=== PATIENT | female | born 1955 | race Caucasian/White ===

== ENCOUNTER → 2017-12-06 | Day surgery (SDC) | payer OTHER ==
[2017-12-03 13:46] VITALS: BMI 27.2
[~2017-12-06] MED LIST: Clindamycin/D5W 900 mg/50 ml Premix Bag ONE; Ketamine 50 MG/ML VIAL ONE; Levofloxacin 500 mg/D5W 100 ml Premix Bag ONE; Lidocaine 1% (PF) 30 ML VIAL ONE; Midazolam HCl 5 mg/5 ml Vial ONE; PROPOFOL 200 MG/20 ML VIAL ONE; traMADol HCl 50 MG TAB ONE
[2017-12-06 11:30] LABS: #Basophils 0.1 thou/uL (0.0-0.2); #Eosinphils 0.3 thou/uL (0.0-0.7); #Lymphocytes 2.9 thou/uL (1.20-3.40); #Monocytes 0.7 thou/uL (0.11-0.59); %Eosinophils 2.8 % (0.0-10.0); %Lymphocytes 29.4 % (21.0-51.0); %Monocytes 6.5 % (0.0-10.0); %Neutrophils 60.3 % (42.0-75.0); Hemoglobin 14.9 g/dL (12.0-16.0); Mean Corpuscular HGB CONC 32.4 g/dL (32.0-36.0); Mean Corpuscular Hemoglobin 30.6 pg (27.0-31.0); Mean Corpuscular Volume 94.6 fl (81.0-99.0); Mean Platelet Volume 6.9 fL (7.4-10.4); Platelet Count 239 thou/uL (130-400); RBC Distribution Width 13.1 % (11.5-14.5); Red Blood Cell (RBC) Count 4.85 mill/uL (4.20-5.40); White Blood Cell (WBC) Count 9.9 thou/uL (4.8-10.8)
[2017-12-06 11:38] LABS: Prothrombin Time 13.1 SEC (12.0-14.7)
[2017-12-06 11:42] LABS: Anion Gap 14 mmol/L (10-20); BUN (Urea Nitrogen) 11 mg/dL (9.8-20.1); Calc. Creatinine Clearance 66 mL/min (70-130); Calcium 10.3 mg/dL (7.8-10.44); Carbon Dioxide 24 mmol/L (23-31); Chloride 105 mmol/L (98-107); Estimated GFR-MDRD 59; Glucose 113 mg/dL (80-115); Potassium 4.2 mmol/L (3.5-5.1); Sodium 139 mmol/L (136-145)
[2017-12-06 11:44] LABS: PTT 22.2 SEC (22.9-36.1)
--- NOTE | 2017-12-06 15:36 | RAD ---
CHEST ONE VIEW: HISTORY: Post cardiac device placement. COMPARISON: Chest, one view, 01/21/2017. FINDINGS: Interval placement of a dual-lead pacer/AICD, without complication. There is increased opacity within the left lower lobe and lingula with linear lung markings. IMPRESSION: 1. Uncomplicated placement of dual-lead automatic implantable cardioverter-defibrillator/pacer. 2. Improved air space opacity since the 01/21/2017 examination. 3. Lingular and left lower lobe solid appearing density. 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 POS: [facility]
--- NOTE | 2017-12-06 21:34 | EKG ---
Test Reason : PREOP Blood Pressure : / mmHG Vent. Rate : 063 BPM Atrial Rate : 062 BPM P-R Int : 000 ms QRS Dur : 116 ms QT Int : 406 ms P-R-T Axes : 000 -74 265 degrees QTc Int : 415 ms Electronic atrial pacemaker Left anterior fascicular block Left ventricular hypertrophy with QRS widening Lateral infarct (cited on or before 31-DEC-2016) Marked ST abnormality, possible inferior subendocardial injury * ACUTE PR * Abnormal ECG When compared with ECG of 21-JAN-2017 07:48, Significant changes have occurred Confirmed by Sarahi HART ([id number]) on 12/06/2017 9:34:25 PM Referred By: DANO Confirmed By:Sarahi HART
== END ==
LOC: CCL 08:39
PROVIDERS: ATTEND Internal Medicine Cardiovascular Disease
PROC: 0JPT0PZ Removal of Cardiac Rhythm Related Device from Trunk Subcutaneous Tissue and Fascia, Open Approach (ICD-10-PCS; principal; 2017-12-06)
PROC: 0JH608Z Insertion of Defibrillator Generator into Chest Subcutaneous Tissue and Fascia, Open Approach (ICD-10-PCS; principal; 2017-12-06)
DX: Z45.02 Encounter for adjustment and management of automatic implantable cardiac defibrillator (principal); I11.0 Hypertensive heart disease with heart failure; I50.23 Acute on chronic systolic (congestive) heart failure; I25.5 Ischemic cardiomyopathy; I48.0 Paroxysmal atrial fibrillation; I25.10 Atherosclerotic heart disease of native coronary artery without angina pectoris; E03.9 Hypothyroidism, unspecified; F31.9 Bipolar disorder, unspecified; F19.10 Other psychoactive substance abuse, uncomplicated; Z88.0 Allergy status to penicillin; Z88.2 Allergy status to sulfonamides; Z88.8 Allergy status to other drugs, medicaments and biological substances; Z79.01 Long term (current) use of anticoagulants; Z79.82 Long term (current) use of aspirin; Z79.899 Other long term (current) drug therapy; Z98.890 Other specified postprocedural states
CPT/HCPCS: 33263; 36415; 71045; 80048; 85025; 85610; 85730; 93005; 93010; 93641; C1721; J1956; J2001; J2250; J2704; J3490

== ENCOUNTER 2018-03-09 13:02 | Outpatient (CLI) | payer OTHER ==
--- NOTE | 2018-03-11 12:19 | RAD ---
RIGHT FOREARM 2 VIEWS: HISTORY: Right arm pain. FINDINGS: Compression plates and multiple screws transfix the distal radial and ulnar shafts, in anatomic align ment. Fracture planes are not lucent. No perihardware lucency. Yeoman volar angulation of the distal radius has the appearance of an old healed fracture. Ulna positi ve variant is apparent. Osseous structures are likely demineralized. IMPRESSION: 1. Internal fixation right radius and ulna. Old healed distal radial fracture. No acute osseous ab normalities are demonstrated. 2. Osteoporosis. 3. Prominent ulna positive variant. POS: [facility]
== END 2018-03-09 13:03 | disposition home or self-care (01) ==
LOC: RAD-FRANK 13:02
PROVIDERS: ATTEND Internal Medicine
DX: S59.911A Unspecified injury of right forearm, initial encounter (principal); M81.0 Age-related osteoporosis without current pathological fracture; Z98.890 Other specified postprocedural states

== ENCOUNTER 2018-03-30 19:30 | Outpatient (CLI) | payer OTHER | END 2018-03-30 19:31 | disposition home or self-care (01) | LOC: SLEEPLAB 19:30 | PROVIDERS: ATTEND Internal Medicine | DX: G47.33 Obstructive sleep apnea (adult) (pediatric) (principal); R53.83 Other fatigue; K21.9 Gastro-esophageal reflux disease without esophagitis; I11.0 Hypertensive heart disease with heart failure; I50.9 Heart failure, unspecified; E11.9 Type 2 diabetes mellitus without complications | CPT/HCPCS: 95811 ==

== ENCOUNTER 2019-09-07 10:31 | Outpatient (CLI) | payer OTHER ==
--- NOTE | 2019-09-07 10:56 | ULT ---
Right upper quadrant ultrasound: 09/07/2019 COMPARISON: None HISTORY: Elevated liver function tests TECHNIQUE: Multiplanar grayscale sonographic imaging of the right upper quadrant obtained FINDINGS: The hepatic parenchyma is heterogeneous in the peripheral contour the liver is irregular. F indings are suspicious for cirrhosis. No focal liver lesion or intrahepatic biliary dilatation noted. The common bile duct measures approximately 7 mm, likely within normal limits given the patient's his tory of prior cholecystectomy. Clinical correlation required. Imaged pancreas unremarkable. The tail of the pancreas is obscured by bowel gas. The right kidney measures 8.7 cm in craniocaudal dimension and demonstrates no evidence for stone, hy dronephrosis, or mass. IMPRESSION: Findings suggesting cirrhosis.
== END 2019-09-07 10:32 | disposition home or self-care (01) ==
LOC: BICULT 10:31
PROVIDERS: ATTEND Internal Medicine
DX: R94.5 Abnormal results of liver function studies (principal)
CPT/HCPCS: 76705

== ENCOUNTER 2019-09-19 10:01 | Outpatient (CLI) | payer OTHER ==
--- NOTE | 2019-09-19 10:21 | RAD ---
PA AND LATERAL CHEST: Date: 09/19/2019 HISTORY: Dyspnea. COMPARISON: 12/06/2017. FINDINGS: The heart size is enlarged. The left ventricular aneurysm seen on the CT scan of 12/13/2016 and the c omparison chest x-ray are stable. Left-sided AICD remains in place. Lungs are well expanded without l obar consolidation, pneumothoraces, lesa pulmonary edema, or pleural effusions. The compressed T8 ve rtebral body is stable. A new compression of the T6 vertebral body is seen. IMPRESSION: No acute process. POS: [facility]
== END 2019-09-19 10:02 | disposition home or self-care (01) ==
LOC: RAD 10:01
PROVIDERS: ATTEND Internal Medicine
DX: R06.00 Dyspnea, unspecified (principal)
CPT/HCPCS: 71046

== ENCOUNTER 2020-03-12 14:46 | Outpatient (CLI) | payer OTHER ==
--- NOTE | 2020-03-12 15:20 | RAD ---
Left foot 3 views HISTORY: Injury. COMPARISON: 08/05/2012. FINDINGS: Lisfranc joint alignment is anatomic. Plantar arch is somewhat exaggerated. Small plantar e nthesophyte arises from the inferior aspect of the calcaneus. Mild osteoarthritic changes are present throughout the foot. A subtle transverse sclerotic line extends across the mid shaft of the proximal phalanx little toe wi th subtle associated cortical thickening/buckling. No displaced fractures are apparent. IMPRESSION : Suspected healing/old fracture at the proximal phalanx of the left Little toe. Mild osteoarthritic changes. Small plantar heel spur.
== END 2020-03-12 14:47 | disposition home or self-care (01) ==
LOC: RAD 14:46
PROVIDERS: ATTEND Nurse Practitioner Family
DX: S99.922A Unspecified injury of left foot, initial encounter (principal); M19.072 Primary osteoarthritis, left ankle and foot; M77.32 Calcaneal spur, left foot

== ENCOUNTER 2020-03-16 21:48 | Emergency (ER) | payer OTHER ==
[2020-03-16 23:26] LABS: #Basophils 0.1 thou/uL (0.0-0.2); #Eosinphils 0.3 thou/uL (0.0-0.7); #Lymphocytes 3.3 thou/uL (1.20-3.40); #Monocytes 0.7 thou/uL (0.11-0.59); #Neutrophils 4.8 thou/uL (1.40-6.50); %Basophils 1.2 % (0.0-1.0); %Eosinophils 3.3 % (0.0-10.0); %Lymphocytes 36.4 % (21.0-51.0); %Monocytes 7.3 % (0.0-10.0); %Neutrophils 51.7 % (42.0-75.0); Hemoglobin 12.9 g/dL (12.0-16.0); Mean Corpuscular HGB CONC 33.4 g/dL (32.0-36.0); Mean Corpuscular Hemoglobin 32.6 pg (27.0-31.0); Mean Corpuscular Volume 97.7 fL (78.0-98.0); Mean Platelet Volume 7.8 fL (7.4-10.4); Platelet Count 160 thou/uL (130-400); RBC Distribution Width 12.4 % (11.5-14.5); Red Blood Cell (RBC) Count 3.97 mill/uL (4.20-5.40); White Blood Cell (WBC) Count 9.2 thou/uL (4.8-10.8)
--- NOTE | 2020-03-16 23:49 | RAD ---
EXAM: CHEST ONE VIEW HISTORY: Malfunctioning defibrillator. COMPARISON: 09/19/2019 FINDINGS: Dual lead left subclavian AICD device remains in place and unchanged in position. Cardiac silhouette remains in enlarged with abnormal configuration at the left cardiac border unchanged when compared to prior study. Prior CT thorax in 2017 demonstrated marked left ventricular dilatation as well as a left ventricular aneurysm which corresponds to chest x-ray abnormality. There is mild nonspecific interstitial prominence. No consolidation or pleural fluid is identified.. Osteopenia is present. Vas cular calcifications are seen in the thoracic aorta. IMPRESSION: 1. Cardiomegaly with evidence of left ventricular aneurysm which was seen on a prior CT exam. 2. Nonspecific mild interstitial prominence.
[2020-03-16 23:50] LABS: ALT (SGPT) 42 U/L (8-55); AST (SGOT) 59 U/L (5-34); Albumin 3.8 g/dL (3.4-4.8); Alkaline Phosphatase 240 U/L (40-110); Anion Gap 12 mmol/L (10-20); BUN (Urea Nitrogen) 16 mg/dL (9.8-20.1); Bilirubin, Total 0.8 mg/dL (0.2-1.2); Calc. Creatinine Clearance 0 mL/min (70-130); Calcium 8.9 mg/dL (7.8-10.44); Carbon Dioxide 20 mmol/L (23-31); Chloride 108 mmol/L (98-107); Estimated GFR-MDRD 36; Globulin 3.6 g/dL (2.4-3.5); Glucose 79 mg/dL (80-115); Potassium 3.4 mmol/L (3.5-5.1); Protein, Total 7.4 g/dL (6.0-8.3); Sodium 137 mmol/L (136-145)
== END 2020-03-17 01:41 | disposition home or self-care (01) ==
LOC: ERS 21:48
DX: Z45.02 Encounter for adjustment and management of automatic implantable cardiac defibrillator (principal); E03.9 Hypothyroidism, unspecified; I25.2 Old myocardial infarction; I25.10 Atherosclerotic heart disease of native coronary artery without angina pectoris; E78.5 Hyperlipidemia, unspecified; I11.0 Hypertensive heart disease with heart failure; I50.9 Heart failure, unspecified; F41.9 Anxiety disorder, unspecified; F31.9 Bipolar disorder, unspecified; E11.9 Type 2 diabetes mellitus without complications; F20.9 Schizophrenia, unspecified; F17.210 Nicotine dependence, cigarettes, uncomplicated; Z79.899 Other long term (current) drug therapy; Z79.82 Long term (current) use of aspirin
CPT/HCPCS: 36415; 71045; 80053; 83735; 83880; 84484; 85025; 93005

== ENCOUNTER 2020-04-16 22:06 | Emergency (ER) | payer OTHER ==
--- NOTE | 2020-04-16 22:48 | RAD ---
LEFT WRIST 3 VIEWS: HISTORY: Left wrist pain, injury FINDINGS: There is a tiny bony density noted in the soft tissues of the dorsal aspect of the distal wrist/carpu s, suspicious for a fracture of the triquetrum.
--- NOTE | 2020-04-16 22:50 | RAD ---
XR Forearm Rt 2 View STANDARD HISTORY: Fall, right wrist pain, right forearm pain FINDINGS: There are postop changes with metallic hardware of healed fractures of the shafts of the distal radiu s and ulna. No evidence of acute process is seen.
== END 2020-04-16 23:32 | disposition home or self-care (01) ==
LOC: ERS 22:06
DX: S62.112A Displaced fracture of triquetrum [cuneiform] bone, left wrist, initial encounter for closed fracture (principal); E03.9 Hypothyroidism, unspecified; I25.10 Atherosclerotic heart disease of native coronary artery without angina pectoris; I25.2 Old myocardial infarction; E78.5 Hyperlipidemia, unspecified; F41.9 Anxiety disorder, unspecified; F17.210 Nicotine dependence, cigarettes, uncomplicated; E11.9 Type 2 diabetes mellitus without complications; F20.9 Schizophrenia, unspecified; F31.9 Bipolar disorder, unspecified; I11.0 Hypertensive heart disease with heart failure; I50.9 Heart failure, unspecified; Z79.899 Other long term (current) drug therapy; Z79.82 Long term (current) use of aspirin; Z79.01 Long term (current) use of anticoagulants; W19.XXXA Unspecified fall, initial encounter
CPT/HCPCS: 29125

== ENCOUNTER 2020-05-28 07:18 | Outpatient (CLI) | payer OTHER ==
[2020-05-28 16:23] LABS: #Basophils 0.1 thou/uL (0.0-0.2); #Eosinphils 0.1 thou/uL (0.0-0.7); #Lymphocytes 2.2 thou/uL (1.20-3.40); #Monocytes 0.5 thou/uL (0.11-0.59); #Neutrophils 4.9 thou/uL (1.40-6.50); %Basophils 0.8 % (0.0-1.0); %Eosinophils 1.1 % (0.0-10.0); %Lymphocytes 28.2 % (21.0-51.0); %Monocytes 6.5 % (0.0-10.0); %Neutrophils 63.4 % (42.0-75.0); Hemoglobin 12.4 g/dL (12.0-16.0); Mean Corpuscular Hemoglobin 31.8 pg (27.0-31.0); Mean Corpuscular Volume 99.4 fL (78.0-98.0); Mean Platelet Volume 8.9 fL (7.4-10.4); Platelet Count 134 thou/uL (130-400); RBC Distribution Width 12.2 % (11.5-14.5); Red Blood Cell (RBC) Count 3.91 mill/uL (4.20-5.40); White Blood Cell (WBC) Count 7.8 thou/uL (4.8-10.8)
[2020-05-28 16:36] LABS: Bacteria/HPF None Seen HPF (None Seen); Bilirubin Negative (Negative); Blood, Urine Negative (Negative); Clarity Clear (Clear); Glucose, Urine (Dipstick) Normal (Negative); Ketone, Urine Negative (Negative); Leukocyte Negative Leu/uL (Negative); Nitrite Negative (Negative); Protein, Urine (Dipstick) Negative (Neg-Trace); RBC/HPF 0-3 HPF (0-3); Specific Gravity, Urine 1.007 (1.002-1.036); Squamous Epithelial 0-3 HPF (0-3); Urobilinogen Normal mg/dL (Less than 2); WBC/HPF 0-3 HPF (0-3)
[2020-05-28 16:39] LABS: Anion Gap 15 mmol/L (10-20); BUN (Urea Nitrogen) 9 mg/dL (9.8-20.1); Calc. Creatinine Clearance 0 mL/min (70-130); Calcium 8.2 mg/dL (7.8-10.44); Carbon Dioxide 18 mmol/L (23-31); Chloride 108 mmol/L (98-107); Estimated GFR-MDRD 60; Glucose 101 mg/dL (80-115); Potassium 4.9 mmol/L (3.5-5.1); Sodium 136 mmol/L (136-145)
--- NOTE | 2020-05-29 11:07 | EKG ---
Test Reason : PREOP Blood Pressure : / mmHG Vent. Rate : 070 BPM Atrial Rate : 044 BPM P-R Int : 262 ms QRS Dur : 164 ms QT Int : 414 ms P-R-T Axes : 000 -87 083 degrees QTc Int : 447 ms Atrial-paced rhythm with prolonged AV conduction Left axis deviation Non-specific intra-ventricular conduction block Septal infarct , age undetermined Abnormal ECG Confirmed by ELIZA VELASQUEZ M.D. ([id number] on 05/29/2020 11:06:58 AM Referred By: AARON Confirmed By:ELIZA VELASQUEZ M.D.
[2020-05-29 12:33] LABS: SARS-CoV-2 MS2 Positive; SARS-CoV-2 N Gene Negative; SARS-CoV-2 S Gene Negative; SARS-CoV-2 by NAA Not Detected (NotDetected); SARS-CoV-2 orf1ab Negative
== END 2020-05-28 07:19 | disposition home or self-care (01) ==
LOC: LABBT 07:18
PROVIDERS: ATTEND Orthopaedic Surgery Hand Surgery
DX: Z01.818 Encounter for other preprocedural examination (principal); Z20.828 Contact with and (suspected) exposure to other viral communicable diseases; S62.132A Displaced fracture of capitate [os magnum] bone, left wrist, initial encounter for closed fracture
CPT/HCPCS: 80048; 81001; 85025; 87635; 93005; 93010; U0003

== ENCOUNTER 2020-05-31 09:04 | Day surgery (SDC) | payer OTHER ==
[2020-05-29 13:08] VITALS: BMI 26.6
[2020-05-31] MEDS ORDERED: Midazolam HCl 2 mg/2 ml Vial ONE (11:02)
[2020-05-31] MEDS ORDERED: Fentanyl 100 MCG/2 ML VIAL ONE ×2 (11:03→11:40)
[2020-05-31] MEDS ORDERED: PROPOFOL 200 MG/20 ML VIAL ONE (11:10)
[2020-05-31] MEDS ORDERED: Ondansetron PF 4 MG/2 ML Vial ONE (11:10)
[2020-05-31] MEDS ORDERED: EPHEDRINE 25 MG/5 ML SYRINGE ONE (11:10)
[2020-05-31] MEDS ORDERED: PHENYLEPHRINE-NS 100 MCG/ML 10 ML SYRINGE ONE (11:10)
[2020-05-31] MEDS ORDERED: Lidocaine 1% PF 5 ML VIAL ONE (11:10)
[2020-05-31] MEDS ORDERED: Bupivacaine HCl 0.5%/Epinephrine 1:200,000/PF 30 ml Vial ONE (11:11)
[2020-05-31] MEDS ORDERED: Sodium Chloride 0.9% 10 ML ONE (11:24)
[2020-05-31] MEDS ORDERED: Bupivacaine PF 0.5% 30 ML VIAL ONE (11:24)
[2020-05-31] MEDS ORDERED: Bacitracin Zinc Ointment 30 gm TUBE ONE (11:24)
[2020-05-31] MEDS ORDERED: Clindamycin/D5W 900 mg/50 ml Premix Bag ONE (11:28)
[2020-05-31] MEDS ORDERED: Phenylephrine 10 MG/ML VIAL ONE (11:40)
[2020-05-31] MEDS ORDERED: HYDROmorphone 2 MG/ML VIAL SLOW IVP PRN (15:14)
[2020-05-31] MEDS ORDERED: Promethazine HCl 25 MG/ML VIAL IM PRN (15:14)
[2020-05-31] MEDS ORDERED: Promethazine HCl 25 MG/ML VIAL SLOW IVP PRN (15:14)
[2020-05-31] MEDS ORDERED: Ketorolac Tromethamine 30 MG/ML VIAL ONE (15:27)
--- NOTE | 2020-05-31 17:29 | RAD ---
XR Wrist 3 Lt View STANDARD History: ORIF left wrist Comparison: Wrist radiograph May 13, 2020 Findings: Multiple fluoroscopic images were obtained. Compression screw through the scaphoid as well as to the capitate. Likely osteotomy change of the distal radius. Impression: Fluoroscopy for surgical use. Total fluoroscopy time: 1 minute 25 seconds.
--- NOTE | 2020-06-02 15:07 | OP ---
DATE OF PROCEDURE: 05/31/2020 PREOPERATIVE DIAGNOSES: 1. Left capitate fracture, minimally displaced, without nonunion. 2. Left scaphoid displaced fracture with nonunion. FINDINGS: 1. Left scaphoid atrophic nonunion. 2. Capitate fracture without nonunion. PROCEDURES PERFORMED: 1. Open reduction and internal fixation of capitate fracture. 2. Open reduction and internal fixation of scaphoid nonunion with distal radius bone graft 1 cm wide taken from the ridge of the radius giving it a bicortical effect. 3. C-arm supervision. COMPLICATIONS: None. SPECIMEN: None. TOURNIQUET TIME: 118 minutes. BLOOD LOSS: 10 mL. DESCRIPTION OF PROCEDURE: After successful general endotracheal anesthesia, the limb was prepped and draped. The patient then had the fluoroscopy performed. We saw that the capitate fracture did not move and was only approximately 10% displaced while the scaphoid fracture, junction of the mid third and the distal third, was highly mobile. For this reason, we outlined incision for bone graft of the radius, percutaneous type pericapsular fixation of the capitate, and palmar incision for open reduction and internal fixation of scaphoid. We first turned to the scaphoid, and because she had a block we did not have to use any augmenting Marcaine. We exsanguinated the limb and inflated the tourniquet to 250 mmHg pressure. We then made an incision along the flexor carpi radialis tendon until we were past the scaphoid tubercle, retracted tendon and went through the bed of the flexor carpi radialis tendon. We also opened the joint capsule, which was confluent with the bed and then partially released the radial scaphocapitate ligament. Then, we released the capsule off the scaphoid, open the scaphotrapezial joint, and visualized the fracture. The portion distant to the fracture was only approximately 8 mm and when debrided to get down to bleeding pink bone, removed approximately 2 mm in its deep inner side. On the proximal aspect, where most of the bone was located, we were able to remove enough bone to get punctate bleeding with tourniquet deflation. We then measured using K-wires as toggles the position of fragment that would be stable and eliminated any humpback deformity. We then went to the proximal radius using C-arm to outline Taina tubercle and from here proximally, made a 2.5 cm incision carried through skin and subcutaneous tissue on the radial side of the tubercle identified the ECR and ECB and protected them. We released the retinaculum on the ulnar side, released the retinaculum just distal tubercle and found the EPL, we kept it intact. Now, we used a sagittal saw on the end of a TPS 1 cm blade to harvest a 1 cm deep, bicortical, 1-cm wide bone graft. We removed a small amount of cancellous bone at this point, packed some in the interstices where we had debrided the center of the fragment, especially the comminuted distal fragment, and then shaped the bone using toggle sticks to achieve length and eliminating humpback deformity. We slowly corrected the capitolunate angle, placed the lunate almost completely out of the dorsal intercalated instability and then placed the bone graft in. We held the bone graft with two wires, one down the primary axis frontal sagittal plane, which we screw and another more capitate to this, which would be used to maintain reduction. We then measured the screw, and did approach the drill measuring and placed the screw under compression; of 2 mm, it was buried 1 mm. They did not protrude dorsally or enter the radiocarpal joint and did not protrude through the capitoscaphoid joint. We removed the wires, added a slight amount of additional bone graft, and then prepared for the closure. We closed this area with just the capsule with a running 2-0 Vicryl, and then we placed a bulky dressing here. We now approached the capitate, we returned back to the palmar side where we could harvest the distal radius graft, and then went approximately 1 cm distal. Using the C-arm, identified the edge of the dorsal lunate and the capitate. the third from the fourth dorsal compartments, we were able to find this on radiographs, make a 7 mm incision in the capsule longitudinally, spread and then find the capitate's edge. We then placed two guidewires, one to hold any reduction and one for screw and compression, measured this appropriately at 20, but we chose a 16 screw which we could bury. We drilled and then placed the 3.0 x 26 Synthes headless screw in compression mode, fracture line disappeared. The screw head was buried in the bone, did not protrude out into the carpometacarpal joint and we were able to control the bleeding once tourniquet was decreased. We closed the capsule with interrupted [id number] Prolene 4-0, closed the retinaculum with a running 2-0 Vicryl undyed, subcutaneous closure dorsally with a running 4-0 Monocryl followed by 4-0 nylon simple mattress pattern. The same closure techniques were used on the palmar side and same sutures and the patient left the operating room without evidence of anesthetic or operative complication. A bulky was applied and a long arm splint. Job ID: [id number]
== END 2020-05-31 17:10 | disposition home or self-care (01) ==
LOC: SDC 09:04
PROVIDERS: ATTEND Orthopaedic Surgery Hand Surgery
PROC: 0PSN04Z Reposition Left Carpal with Internal Fixation Device, Open Approach (ICD-10-PCS; principal; 2020-05-31)
DX: S62.012A Displaced fracture of distal pole of navicular [scaphoid] bone of left wrist, initial encounter for closed fracture (principal); S62.115A Nondisplaced fracture of triquetrum [cuneiform] bone, left wrist, initial encounter for closed fracture; G89.18 Other acute postprocedural pain; I10 Essential (primary) hypertension; I25.2 Old myocardial infarction; I48.20 Chronic atrial fibrillation, unspecified; E78.00 Pure hypercholesterolemia, unspecified; F31.9 Bipolar disorder, unspecified; F41.9 Anxiety disorder, unspecified; F17.210 Nicotine dependence, cigarettes, uncomplicated; Z79.01 Long term (current) use of anticoagulants; Z79.899 Other long term (current) drug therapy; Z88.0 Allergy status to penicillin; Z88.2 Allergy status to sulfonamides; Z88.8 Allergy status to other drugs, medicaments and biological substances
CPT/HCPCS: 76000; C1713; J0670; J0690; J1885; J2250; J2370; J2405; J2704; J3010; J3490; S0020

== ENCOUNTER 2021-09-19 09:46 | Inpatient (IN) | payer MEDICARE, MEDICAID ==
[2021-09-19 10:25] LABS: Hemoglobin 6.8 g/dL (12.0-16.0); Mean Corpuscular HGB CONC 32.5 g/dL (32.0-36.0); Mean Corpuscular Hemoglobin 33.3 pg (27.0-31.0); Red Blood Cell (RBC) Count 2.03 mill/uL (4.20-5.40)
[2021-09-19 10:34] LABS: PTT 51.6 sec (22.9-36.1); Prothrombin Time 40.9 sec (12.0-14.7)
[2021-09-19 10:39] LABS: #Basophils 0.1 thou/uL (0.0-0.2); #Eosinphils 0.2 thou/uL (0.0-0.7); #Lymphocytes 2.9 thou/uL (1.20-3.40); #Monocytes 0.9 thou/uL (0.11-0.59); #Neutrophils 6.8 thou/uL (1.40-6.50); %Basophils 1.3 % (0.0-1.0); %Eosinophils 2.2 % (0.0-10.0); %Lymphocytes 26.5 % (21.0-51.0); %Monocytes 8.6 % (0.0-10.0); %Neutrophils 61.4 % (42.0-75.0); Burr Cells SLIGHT = 2-5 cells (100X) (0-1/hpf); MDiff Complete? YES; Macrocytosis SLIGHT = 6-15 cells (100X) (0-5/hpf); Mean Platelet Volume 7.5 fL (7.4-10.4); Platelet Count 119 thou/uL (130-400); Platelet Morphology Comment Appears Decreased; Polychromasia SLIGHT = 2-3 cells (100X) (0-2/hpf); RBC Distribution Width 14.8 % (11.5-14.5)
[2021-09-19 10:48] LABS: Chloride 111 mmol/L (98-107); Sodium 137 mmol/L (136-145)
[2021-09-19 10:52] LABS: Albumin 2.6 g/dL (3.4-4.8)
[2021-09-19 10:54] LABS: Calcium 8.7 mg/dL (7.8-10.44)
[2021-09-19 10:55] LABS: Globulin 3.8 g/dL (2.4-3.5); Glucose 114 mg/dL (80-115); Protein, Total 6.4 g/dL (5.8-8.1)
[2021-09-19 10:56] LABS: Anion Gap 12 mmol/L (10-20); Carbon Dioxide 19 mmol/L (23-31)
[2021-09-19 10:57] LABS: Bilirubin, Total 3.1 mg/dL (0.2-1.2)
[2021-09-19 10:58] LABS: Alkaline Phosphatase 129 U/L (40-110); Calc. Creatinine Clearance 0 mL/min (70-130)
[2021-09-19 10:59] LABS: BUN (Urea Nitrogen) 28 mg/dL (9.8-20.1)
[2021-09-19 11:00] LABS: AST (SGOT) 62 U/L (5-34)
[2021-09-19 11:01] LABS: ALT (SGPT) 35 U/L (8-55)
[2021-09-19 11:02] LABS: INR-International Normal Ratio 4.1
[2021-09-19] MEDS ORDERED: Pantoprazole 40 MG VIAL ONE (11:47)
[2021-09-19 11:51] LABS: CK (CPK) 33 U/L (29-168); Lipase 55 U/L (8-78)
[2021-09-19] MEDS ORDERED: HUMAN PROTHROMBIN COMPLX IV SCH (13:30)
[2021-09-19] MEDS ORDERED: HUM PROTHROMBIN CPLX IV SCH (13:30)
[2021-09-19] MEDS ORDERED: [UNRECOGNIZED DRUG - OTHER] IV SCH (13:30)
[2021-09-19] MEDS ORDERED: Phytonadione 10 MG/ML AMP SLOW IVP SCH ×2 (13:30)
[2021-09-19 13:52] LABS: SARS-CoV-2 NAA Rapid Test Not Detected (NotDetected)
[2021-09-19] MEDS ORDERED: Phytonadione 10 MG/ML AMP ONE (14:30)
[2021-09-19] MEDS ORDERED: Pantoprazole 40 MG VIAL IVP SCH (15:30)
[2021-09-19 15:56] VITALS: BMI 30.7
[2021-09-19] MEDS ORDERED: Digoxin 0.125 MG TAB PO SCH (16:30)
[2021-09-19] MEDS: Sodium Chloride 0.9% 1,000 ML IV SCH (17:25)
[2021-09-19] MEDS: Pantoprazole 80 MG in Sodium Chloride 0.9% 100 ML IVPB SCH (17:25)
[2021-09-19] MEDS: cefTRIAXone\\ROCEPHIN 1 GM in Sodium Chloride 0.9% 100 ML IVPB SCH (18:39)
[2021-09-19] MEDS: busPIRone HCl 5 MG TAB PO SCH (21:04)
[2021-09-19] MEDS: Atorvastatin Calcium 10 MG TAB PO SCH (21:04)
[2021-09-20] MEDS: Pantoprazole 80 MG in Sodium Chloride 0.9% 100 ML IVPB SCH ×2 (01:37→10:00)
[2021-09-20] MEDS: Acetaminophen 325 MG TAB PO PRN ×3 (02:38→21:51)
[2021-09-20] MEDS: Sodium Chloride 0.9% 1,000 ML IV SCH ×3 (02:38→23:46)
[2021-09-20 04:43] LABS: Hemoglobin 7.1 g/dL (12.0-16.0); Mean Corpuscular HGB CONC 34.8 g/dL (32.0-36.0); Mean Corpuscular Hemoglobin 34.2 pg (27.0-31.0); Mean Corpuscular Volume 98.3 fL (78.0-98.0); Mean Platelet Volume 7.4 fL (7.4-10.4); Platelet Count 81 thou/uL (130-400); RBC Distribution Width 14.1 % (11.5-14.5); Red Blood Cell (RBC) Count 2.09 mill/uL (4.20-5.40); White Blood Cell (WBC) Count 9.3 thou/uL (4.8-10.8)
[2021-09-20 04:52] LABS: INR-International Normal Ratio 2.4; Prothrombin Time 26.7 sec (12.0-14.7)
[2021-09-20 05:02] LABS: ALT (SGPT) 30 U/L (8-55); AST (SGOT) 55 U/L (5-34); Albumin 2.2 g/dL (3.4-4.8); Alkaline Phosphatase 122 U/L (40-110); Anion Gap 10 mmol/L (10-20); BUN (Urea Nitrogen) 23 mg/dL (9.8-20.1); Bilirubin, Total 5.1 mg/dL (0.2-1.2); Calc. Creatinine Clearance 41 mL/min (70-130); Calcium 8.3 mg/dL (7.8-10.44); Carbon Dioxide 20 mmol/L (23-31); Chloride 109 mmol/L (98-107); Globulin 3.4 g/dL (2.4-3.5); Glucose 87 mg/dL (80-115); Potassium 4.7 mmol/L (3.5-5.1); Protein, Total 5.6 g/dL (5.8-8.1); Sodium 134 mmol/L (136-145)
[2021-09-20] MEDS: Levothyroxine Sodium 50 MCG TAB PO SCH (06:03)
[2021-09-20] MEDS ORDERED: Phytonadione 10 MG in Sodium Chloride 0.9% 50 ML IVPB SCH (09:00)
[2021-09-20] MEDS ORDERED: GoLYTELY 4,000 ml Bottle PO SCH (09:15)
[2021-09-20] MEDS: busPIRone HCl 5 MG TAB PO SCH ×2 (09:58→20:45)
[2021-09-20] MEDS: Amiodarone 200 MG TAB PO SCH (09:58)
[2021-09-20] MEDS ORDERED: Sodium Bicarb 50 MEQ/50 ML Abboject 8.4% SYRINGE ONE (10:35)
[2021-09-20] MEDS ORDERED: Pantoprazole 80 MG, Admixture Fee 1 EACH in Sodium Chloride 0.9% 100 ML IVPB SCH (10:45)
[2021-09-20] MEDS: cefTRIAXone\\ROCEPHIN 1 GM in Sodium Chloride 0.9% 100 ML IVPB SCH (17:44)
[2021-09-20] MEDS: Atorvastatin Calcium 10 MG TAB PO SCH (20:45)
[2021-09-21 04:50] VITALS: TEMP 97.6
[2021-09-21] MEDS: Levothyroxine Sodium 50 MCG TAB PO SCH (05:33)
[2021-09-21 05:38] LABS: #Basophils 0.1 thou/uL (0.0-0.2); #Eosinphils 0.1 thou/uL (0.0-0.7); #Lymphocytes 2.9 thou/uL (1.20-3.40); #Monocytes 0.8 thou/uL (0.11-0.59); #Neutrophils 4.9 thou/uL (1.40-6.50); %Basophils 0.6 % (0.0-1.0); %Eosinophils 1.5 % (0.0-10.0); %Lymphocytes 33.1 % (21.0-51.0); %Monocytes 8.6 % (0.0-10.0); %Neutrophils 56.2 % (42.0-75.0); Hemoglobin 7.3 g/dL (12.0-16.0); Mean Corpuscular HGB CONC 33.9 g/dL (32.0-36.0); Mean Corpuscular Hemoglobin 33.9 pg (27.0-31.0); Mean Platelet Volume 7.7 fL (7.4-10.4); Platelet Count 82 thou/uL (130-400); RBC Distribution Width 14.3 % (11.5-14.5); Red Blood Cell (RBC) Count 2.15 mill/uL (4.20-5.40); White Blood Cell (WBC) Count 8.8 thou/uL (4.8-10.8)
[2021-09-21 05:41] LABS: INR-International Normal Ratio 1.9; Prothrombin Time 21.7 sec (12.0-14.7)
[2021-09-21 06:02] LABS: ALT (SGPT) 33 U/L (8-55); AST (SGOT) 64 U/L (5-34); Albumin 2.3 g/dL (3.4-4.8); Alkaline Phosphatase 116 U/L (40-110); Anion Gap 11 mmol/L (10-20); BUN (Urea Nitrogen) 18 mg/dL (9.8-20.1); Bilirubin, Total 4.6 mg/dL (0.2-1.2); Calc. Creatinine Clearance 54 mL/min (70-130); Carbon Dioxide 18 mmol/L (23-31); Chloride 112 mmol/L (98-107); Globulin 3.6 g/dL (2.4-3.5); Glucose 95 mg/dL (80-115); Iron 131 ug/dL (50-170); Iron Binding Capacity, Total 176 mcg/dL (265-497); Protein, Total 5.9 g/dL (5.8-8.1); Sodium 137 mmol/L (136-145)
[2021-09-21 06:37] LABS: Ferritin 161.24 ng/mL (10-291)
[2021-09-21 06:47] LABS: Hep C IgG Ab Non-Reactive (NonReactive); Hep C Index 0.24 S/CO (0-0.79); Hepatitis B Core IgM Abs NonReactive (NonReactive)
[2021-09-21 06:48] LABS: HBSAg Index 0.24 S/CO (0-0.99); Hep A IgM AB Non-Reactive (NonReactive); Hep A IgM S/CO 0.14 S/CO (0-0.79); Hep B Surf Ag NonReactive S/CO (NonReactive)
[2021-09-21] MEDS ORDERED: PROPOFOL 200 MG/20 ML VIAL ONE (08:16)
[2021-09-21] MEDS ORDERED: Ketamine 50 MG/ML (10ML VIAL) ONE (08:17)
[2021-09-21] MEDS ORDERED: Ondansetron HCl/PF 4 MG/2 ML Vial IVP PRN (08:38)
[2021-09-21] MEDS: busPIRone HCl 5 MG TAB PO SCH (09:41)
[2021-09-21] MEDS: Amiodarone 200 MG TAB PO SCH (09:41)
[2021-09-21 17:21] LABS: ANA Symphony (Qualitative) Equivocal: See Note (Negative); ANA Symphony (Quantitative) 0.7 Ratio (< 0.7 Negative); EliA Vaculitis New Method **** NEW METHOD ****; Mitochondrial Ab 2.7 U/mL (<4 Negative)
== END 2021-09-21 14:43 | disposition home or self-care (01) | DRG 378 ==
LOC: ERS 09:46 → IMCU/EMU 12:34
PROVIDERS: ADMIT Internal Medicine; ATTEND Family Medicine
PROC: 30233N1 Transfusion of Nonautologous Red Blood Cells into Peripheral Vein, Percutaneous Approach (ICD-10-PCS; principal; 2021-09-19)
PROC: 30283B1 Transfusion of Nonautologous 4-Factor Prothrombin Complex Concentrate into Vein, Percutaneous Approach (ICD-10-PCS; 2021-09-19)
PROC: 02HV33Z Insertion of Infusion Device into Superior Vena Cava, Percutaneous Approach (ICD-10-PCS; 2021-09-19)
PROC: 0DJ08ZZ Inspection of Upper Intestinal Tract, Via Natural or Artificial Opening Endoscopic (ICD-10-PCS; 2021-09-21)
PROC: 0DJD8ZZ Inspection of Lower Intestinal Tract, Via Natural or Artificial Opening Endoscopic (ICD-10-PCS; 2021-09-21)
DX: K92.1 Melena (principal); D62 Acute posthemorrhagic anemia; N17.9 Acute kidney failure, unspecified; I13.0 Hypertensive heart and chronic kidney disease with heart failure and stage 1 through stage 4 chronic kidney disease, or unspecified chronic kidney disease; R18.8 Other ascites; Z20.822 Contact with and (suspected) exposure to COVID-19; K74.60 Unspecified cirrhosis of liver; E03.9 Hypothyroidism, unspecified; N18.9 Chronic kidney disease, unspecified; I50.9 Heart failure, unspecified; I48.91 Unspecified atrial fibrillation; R79.1 Abnormal coagulation profile; Z28.21 Immunization not carried out because of patient refusal; Z79.01 Long term (current) use of anticoagulants; Z90.710 Acquired absence of both cervix and uterus; Z88.0 Allergy status to penicillin; Z88.8 Allergy status to other drugs, medicaments and biological substances; Z79.899 Other long term (current) drug therapy; Z95.810 Presence of automatic (implantable) cardiac defibrillator; Z90.49 Acquired absence of other specified parts of digestive tract; Z87.891 Personal history of nicotine dependence
CPT/HCPCS: 36415; 36430; 71045; 76700; 80053; 80074; 82105; 82274; 82550; 82728; 83516; 83540; 83550; 83690; 83880; 84484; 85025; 85027; 85610; 85730; 86038; 86225; 86850; 86900; 86901; 87045; 87046; 87077; 87324; 87427; 87449; 93005; C9113; J0696; J2704; J3430; J3490; J7050; J7168; P9016; U0002